=== PATIENT | female | born 1940 | race Caucasian/White ===

== ENCOUNTER 2016-10-01 05:24 | Day surgery (SDC) | payer MEDICARE, OTHER ==
[2016-10-01] VITALS (8 sets, daily range): BP systolic 148–182; BP diastolic 76–87; Ht 165.1 cm; Wt 88.3 kg
[~2016-10-01] VITALS: Ht 165.1 cm; Wt 88.3 kg
[~2016-10-01 05:24] MED LIST: ACETAMINOPHEN500 M1 PO; CARDIZEM CD180 MG PO; CLEOCIN HCL300 MG PO; COUMADIN10 MG PO; COUMADIN5 MG PO; COUMADIN7.5 MG PO; LISINOPRIL5 MG GT; SYNTHROID50 MCG PO; VITAMIN D2000 UNIT; ZANTAC150 MG PO
[2016-10-01] MEDS ORDERED: LISINOPRIL5 MG PO (06:18)
[2016-10-01] MEDS ORDERED: LOVENOX60 MG/0.6 SC (06:19)
[2016-10-01] MEDS ORDERED: OMEPRAZOLE20 M1 PO (06:21)
[2016-10-01 06:37] LABS: HEMOGLOBIN 11.3 g/dL (12-16); MCH 30.1 pg (26.0-34.0); MCHC 32.3 g/dL (31.0-37.0); MCV 93.1 fL (80.0-100.0); MEAN PLATELET VOLUME 11.2 fL (7.4-10.4); RBC 3.76 10x6/uL (4.00-5.40); RDW 16.1 % (11.5-14.5); WBC 6.1 10x3/uL (4.8-10.8)
[2016-10-01 06:47] LABS: ANION GAP 16.2 mmol/L (8-16); CALCIUM 9.5 mg/dL (8.5-10.1); CARBON DIOXIDE 21.8 mmol/L (21.0-32.0); CREATININE - SERUM 1.6 mg/dL (0.6-1.3)
[2016-10-01] MEDS ORDERED: CITRACAL + D E1 EACH PO (06:49)
[2016-10-01] MEDS ORDERED: ZYRTEC10 MG PO (06:50)
[2016-10-01 06:54] LABS: INR 1.06 (0.85-1.17); PROTIME 13.7 SECONDS (11.6-15.0)
[2016-10-01 06:55] LABS: APTT 24.5 SECONDS (22.8-39.4)
--- NOTE | 2016-10-01 19:00 | NUR ---
RECEIVED REPORT AND ASSUMED PT CARE FROM DAY SHIFT NURSE @ THIS TIME.
--- NOTE | 2016-10-01 19:30 | NUR ---
RIGHT AC IV APPEARS INFILTRATED. REDNESS AND SWELLING NOTED. UNABLE TO FLUSH. CATH REMOVED, TIP INTACT. RESITED TO RIGHT UPPER ARM WITH 22 GA ANGIOCATH X1 STICK. PT SHANNON WELL. WILL MONITOR.
[2016-10-02 00:42] VITALS: BP 170/76
[2016-10-02 04:00] VITALS: BP 116/66
[2016-10-02 07:18] VITALS: BP 116/66
--- NOTE | 2016-10-02 07:30 | NUR ---
PT SITTING UP IN BED SLEEPING NO S/S DISTRESS. WILL CONTINUE TO MONITOR.
--- NOTE | 2016-10-02 08:00 | NUR ---
MINNA DOBBS IN [facility]. CALLED PHARM AND ASKED THEM TO BRING UP.
[2016-10-02 08:03] VITALS: BP 128/55
--- NOTE | 2016-10-02 10:02 | NUR ---
STILL NO BENTEC IN [facility]. TALKED TO [facility] THIS TIME. SAID THEY WILL SEND SOME UP
--- NOTE | 2016-10-02 11:32 | HP ---
PATIENT: MARIEL ROBBINS MEDICAL RECORD: [id number] ACCOUNT: [id number] LOCATION:[place] [address] : 40 ADMISSION DATE: 10/01/16 HISTORY AND PHYSICAL EXAMINATION Patient NameMARIEL ROBBINS (76yo, F) ID# [id number]. Date/Time09/15/2016 10:37DUENY73/07/194[facility] Dept.NPP_[facility] ClinicProviderKIM GREEN MDInsuranceMed Primary: MEDICARE B-AR: [employer] MEDICARE Insurance # : [id number] Referring Provider Name : PASCUAL NEWELL Employer Name : [place] Med Secondary: [employer] (MEDICARE SUPPLEMENT) Insurance # : [id number] Policy/Group # : PLAN F Referring Provider Name : PASCUAL NEWELL Employer Name : NA Prescription: Chief Complaint pulse generator end-of-life, Atrial lead revision Patient's Care Team Referring Provider (): PASCUAL NEWELL: [address] [address], , [employer] Executive Director: GREAT COOPER MD Patient's Pharmacies [facility] ([place]): [address] [place] [id number], , Vitals BP:158/88 sitting R arm 09/15/2016 10:15 amBP Cuff Size:adult 09/15/2016 10:15 amHR:88,sl irreg 09/15/2016 10:16 amHt:5 ft 6 in 09/15/2016 10:16 amWt:190 lbs 09/15/2016 10:17 amBMI:30.7 09/15/2016 10:17 amAllergies Reviewed Allergies CODEINE: RashPENICILLINS: RashSULFA (SULFONAMIDE ANTIBIOTICS): RashMedications Reviewed Medications azithromycin 500 mg tablet Take 1 tablet(s) every day by oral route for 5 days., start filledKathy WilsonCalcium 7338412/10/14 enteredCharity McAllisterdilTIAZem CD 180 mg capsule,extended release 24 hr12/23/14 [facility]14[facility]isin[facility] 5 mg /30/15 [facility] CenterVitamin D212/10/14 enteredCharity McAllistervitamin E012/10/14 enteredCharity McAllisterwarfarin 5 mg tablet tuesday and ltxnrcre45/07/14 [facility] Fidelithon Systemswarfarin 7.5 mg tablet takes daily tuesday thru vhiave42/07/14 [facility] Fidelithon SystemsVaccines Reviewed Vaccines FLU 07/2014 PNUMONIA 07/2014 Problems Reviewed Problems Pulmonary embolism Sinus node dysfunction Deep venous thrombosis Pneumonia Scar conditions and fibrosis of skin Dyspnea HISTORY AND PHYSICAL [id number] MARIEL ROBBINS Pleuritic pain Family History Reviewed Family History Non-contributory.Social History Reviewed Social History Meaningful Use - Optional Smoking Status: Never smoker Deaf or serious difficulty hearing: Y Blind or serious difficulty seeing: N Difficulty concentrating, remembering or making decisions: N Difficulty walking or climbing stairs: N Difficulty dressing or bathing: N Difficulty doing errands alone: N Surgical History Reviewed Surgical History Blood clot retraction Anesth knee joint surgery Anesth hysterectomy Removal of gallbladder Relocation pocket pacemaker - 11/11/2010 Reposition pacing-defib lead - 11/11/2010 FINANCE MANAGER History (not configured) Obstetric History Reviewed Obstetric History Past Medical History Past Medical History not reviewed (last reviewed 12/24/2014) Blood Clots: Y Heart Disease: Y - PACEMAKER WITH IRREGULAR BEATS High Blood Pressure: Y Kidney Disease: Y Shortness of Breath: Y Swelling of Ankles, Feet or Hands: Y Thyroid Problems: Y Documents for Discussion N/A Screening None recorded. HPI Pacemaker Check Reported by patient. Pacemaker Check arrhythmias are controlled on current medications Notes: needs gen change. needs atrial lead. ROS Patient reports chest pressure and dyspnea on exertion. ROS as noted in the HPI Physical Exam Patient is a 76-year-old female. Constitutional: General Appearance well nourished and developed and healthy-appearing. Level of Distress NAD. Ambulation ambulating normally. HISTORY AND PHYSICAL [id number] MARIEL ROBBINS Cardiovascular: Apical Impulse not displaced or no thrill. Heart Auscultation normal s1 and s2; no murmurs, rubs, or gallops; and RRR. Arterial Pulses no abdominal aorta bruits, femoral bruits, or popliteal bruits and 2+ bilateral, carotid 2+ bilateral, femoral 2+ bilateral, popliteal 2+ bilateral, and dorsalis p bhupendra 2+ bilateral. Edema no edema or varicosities. Lungs: Repiratory Effort no dyspnea. Percussion no hyperresonance or dullness or flatness. Auscultation no wheezing, rhonchi, or rales / crackles and breathing sounds normal, good air movement, and CTA except as noted. Abdomen: Bowl Sounds normal. Inspection and Palpation no tenderness, guarding, masses, or rebound tenderness and soft and non-distended. Liver non-tender and no hepatomegaly. Spleen non-tender and no splenomegaly. Hernia none palpable. Musculoskeletal System: Gait And Stance normal gait and stance. Digits and Nails normal nails and no cyanosis. Neurologic: Cranial Nerves grossly intact. Reflexes DTRs 2+ bilaterally throughout. Sensation grossly intact. Lymph Nodes: Lymph Nodes no cervical LAD, supraclavicular LAD, axillary LAD, or inguinal LAD. Eyes: Lids and Conjunctivae no discharge or pallor and non-injected. Pupils PERRLA. Cornea grossly intact. EOM EOMI. Lens clear. Sclera non-icteric. Neck: Neck no masses, enlarged lymph nodes, or carotid bruits and supple and trachea midline. Thyroid no enlargement or nodules and non-tender. Skin: Inspection and Palpation no rash, lesions, ulcers, jaundice, or abnormal nevi. Assessment / Plan 1. Sick sinus syndrome I49.5: Sick sinus syndrome Discussion Notes atrial lead threshold was high pulse generator battery end-of-life We'll schedule for new atrial lead and pacemaker generator exchange Will need to complete her Z-Hitesh then she will need to be off Coumadin for 5 days with a Lovenox bridge for 2 days Return to Office None recorded. Encounter Sign-Off Encounter signed-off by Jaiden Green MD, 09/15/2016. HISTORY AND PHYSICAL [id number] MARIEL ROBBINS EDWARD MD at 1132 CC: [id number] DICTATION DATE: 09/15/16 1200 CRUSHER FOREMAN: MARTHA 09/29/16 0946 [address] [facility] [address] [place] [address]
--- NOTE | 2016-10-02 11:32 | OP ---
PATIENT NAME: MARIEL ROBBINS MEDICAL RECORD: [id number] :40 LOCATION:D. D.2120 ADMISSION DATE: SURGEON: ANIBAL VENTURA MD DATE OF OPERATION: 10/01/2016 SURGEON: Anibal Ventura MD ANESTHESIA: General, Dr. Garrett. OPERATION PERFORMED: 1. Atrial lead placement. 2. Generator exchange. 3. Pocket revision. PREOPERATIVE DIAGNOSIS: Sick sinus syndrome, disfunctional atrial lead. POSTOPERATIVE DIAGNOSIS: Sick sinus syndrome, disfunctional atrial lead. INDICATION FOR OPERATION: Dysfunctional atrial lead, pulse generator end of life. FINDINGS OF THE OPERATION: The removed device is a Medtronic Adapta ADDR01, serial number [id number]. ____ Atrial lead Medtronic model number 5076-45, serial number [id number]. Newly implanted generator Medtronic Adapta ADDR01, serial number [id number]. Newly implanted atrial lead Medtronic model number 4574-45, serial number [id number]. Right ventricular lead Medtronic model number 5076-52, serial number [id number]. ESTIMATED BLOOD LOSS: Less than 5 cc. DESCRIPTION OF PROCEDURE: After informed consent, adequate preoperative medication evaluation, the patient was brought to the operating room, placed on the table in the supine position. After induction of general anesthesia and application of appropriate monitoring devices, the left chest was prepped and draped in a sterile field, utilizing Betadine scrub, alcohol, and Betadine solution. A Betadine-impregnated drape was also used. A 1% lidocaine was infiltrated in the infra and subclavicular space as well as the pulse generator pocket. An incision was made and carried down to the generator. The generator was explanted. The leads were mobilized with sharp dissection, the pocket was then opened inferiorly and medially to modify the pocket. The revision was carried out with sharp dissection and electrocautery. Attempts were then made to access the subclavian vein; however, we were unable to access it with the needle. The pectoralis muscle was then opened along its fibers. Dissection was carried down to the subclavian vein. A 6-0 Prolene suture was placed around the area to be accessed. The needle was placed in the vein and we were unable to pass the J-wire into the atrium. A Glidewire was then used and manipulated into the atrium. A short introducer was then placed. Attempts were made to place the lead into the atrium. However, there were areas of stenosis in the subclavian vein. Exchange was made for a long introducer and the leads placed in the atrial appendage. It was tested and found to be in good position with OPERATIVE REPORT [id number] MARIEL ROBBINS good thresholds. The lead was secured. The old atrial lead was capped and placed in the depths of the wound. The pulse generator was then connected to the leads. Pocket was irrigated. Instrument count and sponge count were correct times 2. Pocket was placed. The pacemaker was placed in the pocket. The pocket closed in layers utilizing 2-0 Vicryl on deep subcutaneous tissue, 3-0 Vicryl on superficial subcutaneous tissues. Skin approximated with 5-0 subcuticular Monocryl. Sterile dressing was applied. STIMULATION THRESHOLDS: Atrial lead threshold 0.3 volts, current threshold 0.2 milliamps, resistance 738 ohms. P-wave 5.2. VENTRICULAR LEAD: Chronic threshold 0.5 volts, current lead threshold 1.1 milliamps, resistance 423 ohms, R-wave 6.0. The patient tolerated the procedure well and was transferred to postanesthesia recovery in satisfactory condition. TRANSINT:[id number] Voice Confirmation ID: [id number] DOCUMENT ID: [id number] ANIBAL VENTURA MD at 1132 CC: [id number] DICTATION DATE: 10/01/16 0948 STUD MASTER/MISTRESS: 10/01/16 1146 [address] [place] [address] [place] [address]
--- NOTE | 2016-10-02 11:58 | NUR ---
WENT OVER DC INSTRUCTIONS WITH PT PT VERBALIZES UNDERSTANDING. DC PIV IN R FA WITH CATHETER TIP INTACT. DC TELE. BOAT REPAIRER TO GET WHEELCHAIR AND WHEEL PT OUT.
[2016-10-02 12:11] VITALS: BP 102/51
--- NOTE | 2016-10-08 11:11 | DS ---
PATIENT:MARIEL YOUNG :40 MEDICAL RECORD: [id number] DISCHARGE SUMMARY ADMISSION DATE: 10/01/16 DISCHARGE DATE: 10/02/16 DISCHARGE DIAGNOSES: 1. Paroxysmal atrial fibrillation. 2. Hypertension. 3. Sick sinus syndrome. 4. Status post pacemaker. HOSPITAL COURSE: Mrs. Young had a generator exchange due to end of life and lead revision of the atrial lead. She had paroxysms of atrial fibrillation during the procedure, but none afterwards with the Cardizem. Blood pressure was controlled with Cardizem, lisinopril. Her warfarin was restarted, discharged home in stable condition to follow up with [facility] 1 month. TRANSINT:[id number] Voice Confirmation ID: [id number] DOCUMENT ID: [id number] GRETA COOPER MD at 1111 CC: [id number] DICTATION DATE: 10/02/16 1031 STONE RIGGER: 10/02/16 1046 [facility] 10/02/[address] [address]
--- NOTE | 2016-10-08 11:11 | CN ---
PATIENT NAME:MARIEL YOUNG MEDICAL RECORD: [id number] : 40 LOCATION:D.OPS ADMIT DATE: ACCOUNT: [id number] CONSULTING PHYSICIAN: GRETA COOPER MD REFERRING PHYSICIAN: ANIBAL GREEN MD DATE OF CONSULTATION: 10/01/2016 Cardiology Consultation ADMITTING DIAGNOSES: 1. Paroxysmal atrial fibrillation. 2. Sick sinus syndrome. 3. Status post pacemaker. 4. Atrial lead revision. 5. Hypertension. HISTORY OF PRESENT ILLNESS: Mrs. Young has had a past history of paroxysmal atrial fibrillation, atrial arrhythmias and sick sinus syndrome. She is now brought in for generator change well as atrial lead revision. She had significant atrial arrhythmias at the time of the procedure. She now is in sinus rhythm. She is on diltiazem every day. She has not been able to tolerate beta-blockers in the past. Dose of diltiazem is 180 mg every day. PHYSICAL EXAMINATION: GENERAL APPEARANCE: Well-nourished, well-developed, appears stated age. Level of distress, comfortable. PSYCHIATRIC: Mental status, alert, normal affect. Orientation, oriented to time, place and person. EYES: Lids and conjunctiva, noninjected. No discharge, no pallor. ENT: Lips, teeth, gums, normal dentition. Oropharynx, no cyanosis, no pallor. NECK: Carotid arteries, bilateral normal upstroke, no bruits, no thrills. JUGULAR VEINS: No jugular venous pressure or distention. CERVICAL LYMPH NODES: Nontender, nonenlarged. THYROID: Not enlarged. Nontender. No nodules. LUNGS: Respiratory effort, unlabored. CHEST: Normal curvature. No thoracic deformity. No chest wall tenderness. Percussion, resonant. Auscultation, clear. No wheezes, no rales, no rhonchi. CARDIOVASCULAR: Precordial exam, nondisplaced. No heaves or pericardial thrills. Rate and rhythm, regular. Heart sounds, normal S1, normal S2. No S3, no gallop, no rub. Systolic murmur, not heard. Diastolic murmur, not heard. EXTREMITIES: No cyanosis, no edema. Peripheral pulses, full and equal in all extremities, except as noted. No bruits appreciated. ABDOMEN: Soft, nondistended. Normal aorta. No bruit. Nontender. No masses. Liver, nontender, no hepatomegaly. Spleen, nontender, no splenomegaly. MUSCULOSKELETAL: No joint tenderness. No joint swelling. No erythema. NEUROLOGICAL: Normal gait, normal strength, normal tone. SKIN: Warm and dry. REVIEW OF SYSTEMS: The patient reports easy bruising but reports no swollen glands. The patient reports no fever, no night sweats, no significant weight gain, no significant weight loss. No significant exercise tolerance. The patient reports no dry eyes, no irritation, no vision change. Patient reports no difficulty hearing and no ear pain. Patient reports no frequent nose bleeds or nose and sinus problems. Patient reports on arm pain on exertion. No shortness of breath while lying down. No history of heart murmur. Patient CONSULT REPORT [id number] MARIEL YOUNG S reports no cough, no wheezing or coughing up blood. Patient reports no abdominal pain, no vomiting. Normal appetite. No diarrhea and not vomiting blood. No nausea and no constipation. Patient reports no incontinence. No difficulty urinating. No hematuria. No increased frequency. Patient reports no muscle aches. No weakness, no arthralgias, no back pain. No swelling of the extremities. Patient reports no abnormal mole, no jaundice, no rashes. Reports no loss of consciousness. No weakness and no numbness. No seizures, dizziness, or headaches. The patient reports no depression, no sleep disturbance, feeling safe in a relationship and no alcohol abuse. Patient reports on fatigue. Reports no runny nose or sinus pressure. No itching, no hives, and no frequent sneezing. OVERALL IMPRESSION: Atrial arrhythmias during the procedure, most likely secondary to manipulation of the atrium. Right now, she is sinus rhythm at 78 with the diltiazem, has not had any arrhythmias since she has been here. We will continue only with the diltiazem. Due to her intolerance to beta blockers, we will change her to possibly sotalol or Cordarone if she continues to have further atrial arrhythmias today. TRANSINT:[id number] Voice Confirmation ID: [id number] DOCUMENT ID: [id number] GRETA COOPER MD at 1111 CC: [id number] DICTATION DATE: 10/01/16 1054 REAL ESTATE CLOSING COORDINATOR: 10/01/16 1317 [facility] 10/02/16 [place] [address]
== END 2016-10-02 13:08 | disposition home or self-care (01) ==
LOC: D.M2 05:24 → D.OPS 05:24 → D.M2 09:51 → D.SDCHOLD 11:15 → D.OPS 10-02 13:08
PROVIDERS: Internal Medicine Cardiovascular Disease
DX: Z45.010 Encounter for checking and testing of cardiac pacemaker pulse generator [battery] (principal); T82.190A Other mechanical complication of cardiac electrode, initial encounter; I49.5 Sick sinus syndrome; I48.0 Paroxysmal atrial fibrillation; I10 Essential (primary) hypertension

== ENCOUNTER 2017-03-30 20:07 | Observation (INO) | payer MEDICARE, OTHER ==
[~2017-03-30] VITALS: Ht 165.1 cm; Wt 91.1 kg
--- NOTE | ~2017-03-30 | HEMODYNAMI ---
PATIENT:MARIEL ROBBINS MEDICAL RECORD: [id number] : 40 LOCATION[id number] ADMISSION DATE: 03/30/17 Generatedon:04/01/201710:30 Patient name: MARIEL ROBBINS Patient #: [id number] SSN: : 1940 Date of study: 04/01/2017 Page: Of Hemodynamic Procedure Report Patient Data Patient Demographics Procedure consent was obtained First Name: MARIEL Gender: Female Last Name: ITZEL : 1940 Middle Initial: S Age: 76 year(s) Patient #: [id number] Race: Unknown Additional ID: [id number] Contact details [address]: [address] [place] [address] State: [place] City: [place] Zip code: [address] Past Medical History Allergies Allergen Reaction Date Comments Reported Penicillins 04/01/2017 Sulfa drugs 04/01/2017 Codeine 04/01/2017 Other allergy 04/01/2017 METOPROLOL Admission Admission Data Admission Date: 03/30/2017 Admission Time: 23:04 Room #: D.2119 Height (in.): 66 BSA: 2.03 (m2) Height (cm.): 167.64 BMI: 33.25 (kg/m2) Weight (lbs.): 206 Weight (kg.): 93.44 Lab Results Lab Result Date: 04/01/2017 Lab Result Time: 0:01 Biochemistry Name Units Result Min Max CK-MB ng/ml 2.5 --(--*-)-- 0 3.6 Creatinine l 189 --(---*)-- 21 215 Kinase Troponin l ng/ml 0.017 --(-*--)-- 0 0.06 Procedure Procedure Types Cath Procedure Diagnostic Procedure [facility] w/Coronaries Miscellaneous Procedures Moderate Sedation up to 15 minutes Procedure Description Procedure Date Procedure Date: 04/01/2017 Procedure Start Time: 10:17 Procedure End Time: 10:28 Procedure Staff Name Function Manpreet Juarez MD Performing Physician Leah Brink RN Nurse Kris Solano RT Scrub [place]antara RT Monitor Procedure Data Cath Procedure Fluoroscopy Diagnostic fluoroscopy Total fluoroscopy Time: 1.6 time: 1.6 min min Diagnostic fluoroscopy Total fluoroscopy dose: 300 dose: 300 mGy mGy Contrast Material Contrast Material Type Amount (ml) Isovue 300 47 Entry Location Entry Primary Successful Side Size Upsize Upsize Entry Closure Succes sful Closure Location (Fr) 1 (Fr) 2 (Fr) Remarks Device Remarks Femoral Right 5 Fr Exoseal artery Diagnostic catheters Device Type Used For End Catheter Placement Cordis 5Fr Pigtail LV Angiography Catheter (MP) Cordis 5Fr JL 4.0 Left Coronary Catheter (MP) Angiography Cordis 5Fr 3DRC Catheter Right Coronary (MP) Angiography Procedure Complications No complications Procedure Medications Medication Administration Route Dosage Oxygen NC 2 l/min Heparin Flush Bag added to field 2 bags (1000units/500ml NS) Lidocaine 2% added to field 20 Versed I.V. 1 mg Fentanyl I.V. 50 mcg Versed I.V. 1 mg Fentanyl I.V. 50 mcg Fentanyl I.V. 50 mcg Hemodynamics Rest BSA: 2.03 (m2) HGB: 10.4 (g/dl) O2 Consumption: Estimated: 194.37 (ml/min) O2 Co nsumption indexed: Estimated:95.75 (ml/min/m) Heart Rate: 83 (bpm) Snapshots Pre Cath Intra NCS Post Cath Vital Signs Time Heart Resp SPO2 etCO2 EN7tcul NIBP (mmHg) Rhythm Pain Sedation Rate (ipm) (%) (mmHg) (mmHg) Status Level (bpm) 10:01:19 83 19 95 0 0 171/85(150) NSR 0 (11) 10(A) , No pain 10:05:47 79 19 94 0 0 182/82(134) NSR 0 (11) 10(A) , No pain 10:10:09 73 15 97 0 0 172/81(119) NSR 0 (11) 10(A) , No pain 10:14:35 69 16 97 0 0 145/71(101) NSR 0 (11) 10(A) , No pain 10:18:55 71 16 97 0 0 152/74(101) NSR 0 (11) 9(A) , No pain 10:23:20 73 18 96 0 0 157/69(122) NSR 0 (11) 9(A) , No pain 10:27:34 72 8 94 0 0 147/73(101) NSR 0 (11) 9(A) , No pain Medications Time Medication Route Dose Verified Delivered Reason Notes Effec tiveness by by 10:08:27 Oxygen NC 2 Manpreet Leah Per l/min Ann Brink RN physician 10:08:36 Heparin Flush added 2 Manpreet Manpreet used for Bag to bags Ann Juarez MD procedure (1000units/500ml field NS) 10:08:44 Lidocaine 2% added 20ml Manpreet Manpreet used for to vial Ann Juarez MD procedure field 10:10:15 Versed I.V. 1 mg Manpreet Leah for Ann Brink RN sedation 10:10:21 Fentanyl I.V. 50 Manpreet Leah for mcg Ann Brink RN sedation 10:12:56 Versed I.V. 1 mg Manpreet Leah for Ann Brink RN sedation 10:13:02 Fentanyl I.V. 50 Manpreet Leah for mcg Ann Brink RN sedation 10:14:57 Fentanyl I.V. 50 Manpreet Leah for mcg Ann Brink RN sedation Procedure Log Time Note 9:30:47 [place] RT(R) sent for patient. Start room use. 9:40:48 Time tracking: Regular hours 9:40:52 Plan of Care:Hemodynamics will remain stable., Cardiac rhythm will remain stable., Comfort level will be maintained., Respiratory function will remain adequate., Patient/ family verbilizes understanding of procedure., Procedure tolerated without complication., Recovers from procedure without complications.. 9:42:52 H&P Date Dictated: 03/31/2017 Within 30 days and on chart.. 9:43:02 Is patient on blood thinner?No 9:43:34 Lab results completed and on chart. 9:44:15 Lab Result : BUN 20 mg/dl 9:44:15 Lab Result : Creatinine 1.7 mg/dl 9:44:15 Lab Result : Troponin l 0.017 ng/ml 9:44:15 Lab Result : Hemoglobin 10.4 g/dl 9:44:15 Lab Result : PT 15.1 sec 9:44:15 Lab Result : INR 1.2 units 9:52:47 Patient received from PCU to CCL 1 Alert and oriented. Tansferred to table in Supine position. 9:52:49 Warm blankets applied, and virginia hugger turned on for patient comfort. 9:52:49 Correct patient and procedure confirmed by team. 9:52:50 Signed procedure consent form obtained from patient. 9:52:51 ECG and BP/O2 sat monitors applied to patient. 10:00:02 Vital chart was started 10:03:30 Patient Height : 66 cm 10:03:32 Patient Weight : 206 kg 10:03:35 Baseline sample Acquired. 10:03:37 Rhythm: sinus rhythm 10:03:38 Full Disclosure recording started 10:03:39 Pre-procedure instructions explained to patient. 10:03:40 Pre-op teaching completed and patient verbalized understanding. 10:03:42 Family in patients room. 10:03:47 Patient NPO since Midnight. 10:03:56 Patient allergic to Penicillins 10:04:01 Patient allergic to Sulfa drugs 10:04:09 Patient allergic to Codeine 10:04:33 Patient allergic to Other allergyMETOPROLOL 10:04:36 Is the patient allergic to Iodine/contrast media? No. 10:04:45 Patient diabetic? No. 10:04:46 ----Pre-sedation anethsthesia assessment.---- 10:04:48 Previous problem with sedation/anesthesia? No ? 10:04:50 Snore? Yes 10:04:52 Sleep apnea? No 10:04:53 Deviated septum? No 10:04:55 Opens mouth fully? Yes 10:04:57 Sticks out tongue? Yes 10:04:59 Airway obstruction? No ] 10:05:01 Dentures? No ? 10:05:07 Pre procedure: right dorsailis pedis pulse 1+ Palpable, but thready & weak; easily obliterated 10:05:22 Patient pain scale 0/10 CREDIT RISK ASSOCIATE CP AT THIS TIME. 10:05:29 IV patent on arrival in right wrist with 0.9% NaCl at 10ml/hr. 10:05:33 Right groin area was prepped with chlora-prep and draped in sterile fashion 10:05:34 Alarms reviewed by R. N. 10:05:35 Sharps counted by scrub and verified by R.N. 10:08:27 Oxygen 2 l/min NC was administered by Leah Brink RN; Per physician; 10:08:36 Heparin Flush Bag (1000units/500ml NS) 2 bags added to field was administered by Manpreet Juarez MD; used for procedure; 10:08:44 Lidocaine 2% 20ml vial added to field was administered by Manpreet Juarez MD; used for procedure; 10::08 Lab Result : CK-MB 2.5 ng/ml 10::08 Lab Result : Creatinine Kinase 189 l 10:: Lab Result : Troponin l 0.017 ng/ml 10:09:35 Use device set Femoral Dx 10:09:36 Acist Syringe opened to sterile field. 10:09:36 Bag Decanter opened to sterile field. 10:09:37 Medline Cath Pack opened to sterile field. 10:09:37 Terumo 5Fr [place] Sheath opened to sterile field. 10:09:38 St Evgeny 260cm J .035 wire opened to sterile field. 10:09:38 Acist Hand Control opened to sterile field. 10:09:39 Acist Manifold opened to sterile field. 10:09:39 Diagnostic Infinity 5Fr Multipack catheter opened to sterile field. 10:09:40 Tegaderm 4 x 4 opened to sterile field. 10::44 --------ALL STOP TIME OUT------ 10:09:45 Final Timeout: patient, procedure, and site verified with staff and physician. All members of the team are in agreement. 10:09:46 Right groin site verified by team. 10:09:49 Physical assessment completed. ASA score P 2 - A patient with mild systemic disease as per Manpreet Juarez MD. 10:09:52 Sedation plan: IV Moderate Sedation Versed, Fentanyl 10:10:15 Versed 1 mg I.V. was administered by Leah Brink RN; for sedation; 10:10:21 Fentanyl 50 mcg I.V. was administered by Leah Brink RN; for sedation; 10:12:56 Versed 1 mg I.V. was administered by Leah Brink RN; for sedation; 10:13:02 Fentanyl 50 mcg I.V. was administered by Leah Brink RN; for sedation; 10:14:57 Fentanyl 50 mcg I.V. was administered by Leah Brink RN; for sedation; 10:17:26 Procedure started. 10:17:32 Local anesthetic to right femoral artery with Lidocaine 2% by Manpreet Juarez MD.INITIAL ACCESS ONLY 10:17:42 A 5 Fr sheath was inserted into the Right Femoral artery 10:17:53 A Cordis 5Fr Pigtail Catheter (MP) was advanced over the wire and used for LV Angiography. 10:17:57 LV angiography performed. 10:18:00 LV gram done using SAHU 10:18:09 Injector settings: Ml/sec: 10, Volume: 20, 10:19:26 EF : 50 % 10:19:27 Catheter removed. 10:19:32 A Cordis 5Fr JL 4.0 Catheter (MP) was advanced over the wire and used for Left Coronary Angiography. 10:19:41 Zero performed for pressure channel P1 10:20:24 LCA angiography performed. 10:20:57 Catheter removed. 10:21:15 A Cordis 5Fr 3DRC Catheter (MP) was advanced over the wire and used for Right Coronary Angiography. 10:21:21 RCA angiography performed. 10:21:35 Catheter removed. 10:21:41 Contrast amount:Isovue 300 47ml. 10:21:47 Sheath removed intact; hemostasis achieved with Exoseal to the Right Femoral artery. 10:21:49 Procedure ended.(Physican Out) 10:22:13 Fluoroscopy time 01.60 minutes. 10:22:18 Fluoroscopy dose: 300 mGy 10:22:18 Flurop Dose total: 300 10:22:20 Sharps counted by scrub and verified by R.N. 10:22:46 Insertion/operative site no bleeding no hematoma. 10:22:49 Post-op/insertion site Right Femoral artery dressed using a 4 x 4 and Tegaderm. 10:22:52 Post right femoral artery:stable 10:27:55 Post procedure: right dorsailis pedis pulse 1+ Palpable, but thready & weak; easily obliterated. 10:27:58 Post procedure rhythm: sinus rhythm 10:27:59 Post procedure instruction explained to patient.Patient verbalizes understanding. 10:28:01 Procedure and supply charges have been captured, reviewed, submitted and are correct. 10:28:17 Cordis 5Fr Exoseal opened to sterile field. 10:28:30 Procedure Complication : No complications 10:28:32 Vital chart was stopped 10:28:32 See physician's report for complete and final results. 10:28:34 Report given to PCU. 10:28:37 Patient transfered to PCU with Bed. 10:28:39 Procedure ended. 10:28:39 Full Disclosure recording stopped 10:28:42 End room use (Document Last) Device Usage Item Name Manufacture Quantity Catalog Hospital Part Current Minimal Lo t# / Number Charge Number Stock Stock Serial# Code Acist Acist 1 [id number] 206071 925358 20 Syringe [employer] Inc Bag Microtek 1 2002S 718206 83912 610292 5 Decanter [employer] Inc. Medline Cardinal 1 [id number] 261494 01004 537432 5 Cath Pack Health Terumo 5Fr Terumo 1 [id number] 874521 642919 798504 [address] Evgeny 1 149366 572286 654713 816677 30 260cm J .035 wire Acist Hand Acist 1 50169 560170 893489 147345 5 Control Medical Systems Inc Acist Acist 1 68785 794466 669209 190339 5 Manifold Medical Systems Inc Diagnostic Cardinal 1 [id number] 772348 86762 867621 30 Infinity Health 5Fr Multipack catheter Tegaderm 4 3M 1 1626W 057738 109892 808317 5 x 4 Cordis 5Fr Cardinal 1 974007 5 Pigtail Health Catheter (MP) Cordis 5Fr Cardinal 1 [id number] 5 JL 4.0 Health Catheter (MP) Cordis 5Fr Cardinal 1 449344 5 3DRC Health Catheter (MP) Cordis 5Fr Cardinal 1 EX500 303210 242773 884907 10 Exoseal Health Signature Audit [place] Stage Time Signature Unsigned Intra-Procedure 04/01/2017 [place] 10:30:19 AM RT(R) Signatures Monitor : [place] RT Signature : Date : Time : [facility] [address] [place] [address]
[~2017-03-30 20:07] MED LIST changes: +CITRACAL + D E1 EACH PO; +LISINOPRIL5 MG PO; +LOVENOX60 MG/0.6 SC; +OMEPRAZOLE20 M1 PO; +ZYRTEC10 MG PO
[2017-03-30 21:12] LABS: BASOPHILS 0.3 % (0-2); HEMATOCRIT 34.2 % (36.0-48.0); IMMATURE GRANULOCYTES 0.6 % (0-5); LYMPHOCYTES 30.3 % (15-50); MCH 28.8 pg (26.0-34.0); MCHC 32.2 g/dL (31.0-37.0); MCV 89.5 fL (80.0-100.0); MONOCYTES 10.5 % (2-11); NEUTROPHILS 55.3 % (40-80); PLATELET COUNT 204 10x3/uL (130-400); RBC 3.82 10x6/uL (4.00-5.40); RDW 15.6 % (11.5-14.5)
[2017-03-30 21:16] LABS: APTT 26.8 SECONDS (22.8-39.4); INR 1.59 (0.85-1.17); PROTIME 18.9 SECONDS (11.6-15.0)
[2017-03-30 21:28] LABS: ALBUMIN 3.5 g/dL (3.4-5.0); ALT (SGPT) 24 U/L (10-68); CALC OSMOLALITY 284 mosm/kg (275-300); CALCIUM 10.3 mg/dL (8.5-10.1); CARBON DIOXIDE 23.9 mmol/L (21.0-32.0); CHLORIDE - SERUM 105 mmol/L (98-107); GLUCOSE 93 mg/dL (74-106); POTASSIUM - SERUM 4.3 mmol/L (3.5-5.1); SODIUM 140 mmol/L (136-145); UREA NITROGEN 29 mg/dL (7-18); eGFR NON AFRICAN AMERICAN 26 mL/min (90-120)
[2017-03-30 22:07] LABS: ALKALINE PHOSPHATASE 106 U/L (46-116); CHOLESTEROL, TOTAL 192 mg/dL (0-200); CKMB 2.5 U/L (0.0-3.6); CREATINE KINASE 189 UL (21-215); HDL CHOLESTEROL 32 mg/dL (32-96); LDL CHOLESTEROL 104 mg/dL (0-100); LDL-HDL RATIO 3.3 ratio (1.5-3.5); PRO BNP 192 pg/mL (0-450); TRIGLYCERIDE 281 mg/dL (30-200); TROPONIN-I < 0.017 ng/mL (0.000-0.060)
--- NOTE | 2017-03-30 23:52 | NUR ---
REPORT RECEIVED FROM FELIPE MAGDALENO.
[2017-03-31] MEDS ORDERED: ZANTAC150 MG PO (01:20)
[2017-03-31 01:31] VITALS: BMI 33.3
--- NOTE | 2017-03-31 03:12 | NUR ---
GARMENT FINISHER AT BEDSIDE TO OBTAIN VITALS, CALL LIGHT IN REACH. WILL CONTINUE TO MONITOR.
--- NOTE | 2017-03-31 06:39 | NUR ---
NO CHANGES FROM PREVIOUS ASSESSMET, CALL LIGHT IN REACH. WILL CONTINUE TO MONITOR.
[2017-03-31 08:34] LABS: BASOPHILS 0.3 % (0-2); HEMATOCRIT 35.5 % (36.0-48.0); HEMOGLOBIN 11.3 g/dL (12-16); IMMATURE GRANULOCYTES 0.3 % (0-5); LYMPHOCYTES 23.5 % (15-50); MCHC 31.8 g/dL (31.0-37.0); MEAN PLATELET VOLUME 11.5 fL (7.4-10.4); MONOCYTES 9.7 % (2-11); NEUTROPHILS 63.2 % (40-80); PLATELET COUNT 217 10x3/uL (130-400)
[2017-03-31 08:38] LABS: ANION GAP 17.3 mmol/L (8-16); CALCIUM 9.9 mg/dL (8.5-10.1); CARBON DIOXIDE 22.6 mmol/L (21.0-32.0); CREATININE - SERUM 1.9 mg/dL (0.6-1.3); POTASSIUM - SERUM 3.9 mmol/L (3.5-5.1)
--- NOTE | 2017-03-31 12:43 | NUR ---
Patient Name: MARIEL ROBBINS Admission Status: ER Accout number: [id number] Admission Date: 03-30-2017 : 1940 Admission Diagnosis: Attending: VASU Current LOS: 1 Anticipated DC Date: Planned Disposition: HOME Primary Insurance: MEDICARE A & B Discharge Planning Comments: CM PROVIDED AND DISCUSSED MEDICARE [facility] OBSERVATION NOTICE. PT HAD NO QUESTIONS. COPY TO PT, COPY TO CHART. CM TO FOLLOW AND ASSIST IF NEEDED. Scrap Preparer: Shiraz Patterson
[2017-03-31 13:09] VITALS: BP 147/64
[2017-03-31 13:37] VITALS: Ht 165.1 cm; Wt 91.1 kg
[2017-03-31 16:26] VITALS: BP 122/68
--- NOTE | 2017-03-31 19:47 | NUR ---
RESUMED CARE OF PT, UP IN CHAIR RESPIRATIONS EVEN AND UNLABORED ON 2LPM VIA NC. 61 PACED ON TELEMETRY. RIGHT HAND INFUSING D5NS @ 100. PLAN OF CARE DISCUSSED. CALL LIGHT IN REACH. WILL CONTINUE TO MONITOR. SEE NURSE ASSESSMENT.
[2017-03-31 20:00] VITALS: BP 189/63
[2017-04-01] VITALS: BP 141/52
[2017-04-01 04:00] VITALS: BP 188/87
[2017-04-01 05:40] LABS: BASOPHILS 0.2 % (0-2); EOSINOPHILS 4.3 % (0-7); HEMATOCRIT 32.7 % (36.0-48.0); HEMOGLOBIN 10.4 g/dL (12-16); IMMATURE GRANULOCYTES 0.2 % (0-5); LYMPHOCYTES 23.1 % (15-50); MCH 28.8 pg (26.0-34.0); MCHC 31.8 g/dL (31.0-37.0); MCV 90.6 fL (80.0-100.0); MEAN PLATELET VOLUME 10.8 fL (7.4-10.4); MONOCYTES 10.4 % (2-11); NEUTROPHILS 61.8 % (40-80); PLATELET COUNT 193 10x3/uL (130-400); RBC 3.61 10x6/uL (4.00-5.40); RDW 15.6 % (11.5-14.5); WBC 6.3 10x3/uL (4.8-10.8)
[2017-04-01 05:53] LABS: ANION GAP 12.2 mmol/L (8-16); CALCIUM 8.9 mg/dL (8.5-10.1); CARBON DIOXIDE 23.9 mmol/L (21.0-32.0); CREATININE - SERUM 1.7 mg/dL (0.6-1.3); POTASSIUM - SERUM 4.1 mmol/L (3.5-5.1)
[2017-04-01 06:04] LABS: INR 1.2 (0.85-1.17); PROTIME 15.1 SECONDS (11.6-15.0)
--- NOTE | 2017-04-01 07:11 | NUR ---
AM ROUNDS- PT IN BED, WITH EYES CLOSED. BED LOW AND WHEELS LOCKED, BEDSIDE RAILX2, DAUGTHER AT BEDSIDE, CALL LIGHT IN REACH, NAD NOTED, WILL CONTINUE TO MONITOR.
[2017-04-01 08:20] VITALS: BP 198/75
--- NOTE | 2017-04-01 09:31 | NUR ---
PRE- OP MEDS GIVEN AT THIS TIME. PT IN BED, DENIES ANY NEEDS AT THIS TIME. CALL LIGHT IN REACH, NAD NOTED, FAMILY AT BEDSIDE, WILL CONTINUE TO MONITOR.
--- NOTE | 2017-04-01 09:47 | NUR ---
PT TRANSFERED TO SALICYLIC ACID BLENDER VIA BED, NAD NOTED.
--- NOTE | 2017-04-01 10:48 | NUR ---
PT RECEIVED BACK TO ROOM 2118 POST CATH. VITAL SIGNS STABLE, NO BLEEDING OR SIGNS OF HEMATOMA NOTED TO RIGHT GROIN. PT STILL DROWSY, DENIES ANY NEEDS AT THIS TIME. INSTRUCTED PT TO LAY FLAT FOR 2HR. FAMILY AT BEDSIDE, CALL LIGHT IN REACH, NAD NOTED, WILL CONTINUE TO MONITOR.
[2017-04-01 12:35] VITALS: BP 154/66
--- NOTE | 2017-04-01 12:50 | NUR ---
PROVIDED VERBAL AND WRITTEN DISCHARGE TEACHING TO PT AND FAMILY AT BEDSIDE. PT AND FAMILY VERBALIZED UNDERSTANDING REGARDING TEACHING. D/C RT HAND IV, TIP INTACT. HEART MONITOR TAKEN OFF AND TAKEN TO TECHNICAL AID MADY. PT WILL LET ADULT EDUCATOR OR NURSE KNOW WHEN SHE IS READY FOR WHEELCHAIR. NAD NOTED, WILL CONTINUE TO MONITOR.
--- NOTE | 2017-04-01 13:14 | NUR ---
PT LEFT UNIT VIA WHEELCHAIR, ACCOMPANIED BY FAMILY, NAD NOTED.
--- NOTE | 2017-04-02 08:33 | DS ---
PATIENT:MARIEL ROBBINS :[birth year] MEDICAL RECORD: [id number] DISCHARGE SUMMARY ADMISSION DATE: 03/30/17 DISCHARGE DATE: 04/01/17 PROBLEM LIST: 1. Chest pain. 2. Normal cardiac catheterization. 3. History of deep vein thrombosis on chronic Coumadin. 4. Hypertension. 5. Paroxysmal atrial fibrillation in sinus rhythm on diltiazem. HOSPITAL COURSE: The patient presents with chest pain. However, she underwent cardiac catheterization revealing no significant coronary artery disease. She was discharged home with no change in her medications. Continue her Coumadin for her deep vein thrombosis. Follow up with [facility] in three months. GRETA COOPER MD at 0833 CC: [id number] DICTATION DATE: 04/01/17 1200 MANAGER SOCIAL WORK: MARTHA 04/01/17 1538 DIS IN 04/01/17 [place] [id number] [place] [id number]
--- NOTE | 2017-04-02 08:33 | PRO ---
PATIENT:MARIEL ROBBINS MEDICAL RECORD: [id number] : [birth year] LOCATION:D.M2 D.2118 ADMISSION DATE: 03/30/17 PROCEDURE PERFORMED BY: GRETA COOPER MD PROCEDURE DATE: 04/01/17 PROCEDURES: 1. Left heart catheterization. 2. Selective coronary angiography. 3. Left ventriculogram. INDICATION: 1. Chest pain compatible with angina. PROCEDURE IN DETAIL: After informed consent was obtained and after detailed explanation of risks, benefits, as well as alternative therapies, the patient elected to proceed with angiogram. The right femoral area was prepped and draped in a normal sterile fashion. The right femoral artery was cannulated via modified Seldinger technique with placement of 5-[place]izen [place] sheath. All catheters exchanged through this sheath. FINDINGS: Left ventriculogram was performed in standard 30 degree SAHU view, reveals good cardiac wall motion throughout all segments. Overall ejection fraction estimated 50%. SELECTIVE CORONARY ANGIOGRAPHY: 1. Left main, left anterior descending, left circumflex, and right coronary artery are all smooth walled vessels with no angiographic evidence of coronary artery disease. OVERALL IMPRESSION: No angiographic evidence of coronary artery disease. Normal left heart systolic function. Chest pain is noncardiac in etiology. GRETA COOPER MD at 0833 CC: [id number] DICTATION DATE: 04/01/172118 PROJECT ACCOUNTANT: JACKSON 04/01/172117 DIS IN 04/01/17 [place] [id number] [place] [id number]
== END 2017-04-01 13:17 | disposition home or self-care (01) ==
LOC: D.ER 20:07 → OBSVTIME 23:04 → D.M2 23:04
PROVIDERS: Emergency Medicine; Internal Medicine Interventional Cardiology; Nurse Practitioner Acute Care; ADMIT Emergency Medicine
DX: R07.89 Other chest pain (principal); N17.9 Acute kidney failure, unspecified; I12.9 Hypertensive chronic kidney disease with stage 1 through stage 4 chronic kidney disease, or unspecified chronic kidney disease; N18.9 Chronic kidney disease, unspecified; D63.1 Anemia in chronic kidney disease; Z95.0 Presence of cardiac pacemaker; I25.10 Atherosclerotic heart disease of native coronary artery without angina pectoris; I48.0 Paroxysmal atrial fibrillation; Z79.01 Long term (current) use of anticoagulants; Z86.718 Personal history of other venous thrombosis and embolism

== ENCOUNTER 2019-06-03 19:04 | Observation (INO) | payer MEDICARE, OTHER ==
[~2019-06-03] VITALS: Ht 165.1 cm; Wt 88.2 kg
--- NOTE | ~2019-06-03 | HEMODYNAMI ---
PATIENT:MARIEL ROBBINS MEDICAL RECORD: [id number] : 40 [facility] [address] [id number] ADMISSION DATE: 06/03/19 Generatedon:06/04/201915:06 Patient name: MARIEL ROBBINS Patient #: [id number] SSN: [id number] : 1940 Date of study: 06/04/2019 Page: Of Hemodynamic Procedure Report Patient Data Patient Demographics Procedure consent was obtained First Name: MARIEL Gender: Female Last Name: ITZEL : 1940 Middle Initial: S Age: 78 year(s) Patient #: [id number] Race: SSN: [id number] Additional ID: [id number] Contact details [address]: [address] [place] [address] State: [place] City: [place] Zip code: [address] Past Medical History Allergies Allergen Reaction Date Comments Reported Penicillins 04/01/2017 Sulfa drugs 04/01/2017 Codeine 04/01/2017 Other allergy 04/01/2017 METOPROLOL Other allergy 06/04/2019 PCN, SULFA, CODEINE, HYDROCODONE, METOPROLOL Admission Admission Data Admission Date: 06/03/2019 Admission Time: 19:53 Room #: 2122 Lab Results Lab Result Date: 06/04/2019 Lab Result Time: 0:00 Biochemistry Name Units Result Min Max BUN mg/dl 32 --(----)-* 7 18 Creatinine mg/dl 1.9 --(----)-* 0.6 1.3 eGFR ml/min 27 *-(----)-- 90 120 NONAFRICAN CBC Name Units Result Min Max Hemoglobin g/dl 10.8 *-(----)-- 13.5 17.5 Procedure Procedure Types Cath Procedure Diagnostic Procedure LHC LHC w/Coronaries Sedation Charges Moderate Sedation up to 15 minutes Procedure Description Procedure Date Procedure Date: 06/04/2019 Procedure Start Time: 14:56 Procedure End Time: 15:05 Procedure Staff Name Function Manpreet Juarez MD Performing Physician Kelsey Del Rosario RT Monitor Pia Florian RT Scrub Rosa Orr RN Nurse Procedure Data Cath Procedure Fluoroscopy Diagnostic fluoroscopy Total fluoroscopy Time: 1.7 time: 1.7 min min Diagnostic fluoroscopy Total fluoroscopy dose: 238 dose: 238 mGy mGy Contrast Material Contrast Material Type Amount (ml) Isovue 300 40 Entry Location Entry Primary Successful Side Size Upsize Upsize Entry Closure Succes sful Closure Location (Fr) 1 (Fr) 2 (Fr) Remarks Device Remarks Femoral Right 5 Fr Exoseal artery Estimated blood loss: 5 ml Diagnostic catheters Device Type Used For End Catheter Placement MULTIPACK Pigtail 5 Fr LV Angiography catheter MULTIPACK JL 4.0 5Fr Left Coronary catheter Angiography MULTIPACK 3DRC 5Fr Right Coronary catheter Angiography Procedure Complications No complications Procedure Medications Medication Administration Route Dosage 0.9% NaCl I.V. 100 ml/hr Oxygen etCO2 Nasal cannula 2 l/min Lidocaine 2% added to field 20 Heparin Flush Bag added to field 2 bags (1000units/500ml NS) Versed I.V. 2 mg Fentanyl I.V. 50 mcg Fentanyl I.V. 25 mcg Hemodynamics Rest HGB: 10.8 (g/dl) Heart Rate: 75 (bpm) Pressure Samples Time Site Value (mmHg) Purpose Heart Use Rate(bpm) 14:58 LV 60/-4,1 Snapshot 71 Snapshots Pre Cath Intra NCS Post Cath Vital Signs Time Heart Resp SPO2 etCO2 NIBP (mmHg) Rhythm Pain Sedation Rate (ipm) (%) (mmHg) Status Level (bpm) 14:45:08 77 16 97 31.5 Measuring NSR 0 (11) 10(A) , No pain 14:45:23 74 15 98 31.5 173/77(131) NSR 0 (11) 10(A) , No pain 14:50:22 66 18 100 27 Measuring NSR 0 (11) 10(A) , No pain 14:50:46 68 18 98 28.5 160/69(114) NSR 0 (11) 10(A) , No pain 14:55:45 66 18 100 28.5 Measuring NSR 0 (11) 10(A) , No pain 14:56:08 67 17 100 29.2 165/73(128) NSR 0 (11) 10(A) , No pain 15:01:07 76 18 98 30.7 Measuring NSR 0 (11) 10(A) , No pain 15:01:29 77 19 97 30 161/91(132) NSR 0 (11) 10(A) , No pain Medications Time Medication Route Dose Verified Delivered Reason Notes Eff ectiveness by by 14:44:58 0.9% NaCl I.V. 100 Manpreet Rosa used for ml/hr Ann Orr item repair manager 14:45:05 Oxygen etCO2 2 Manpreet Rosa used for Nasal l/min Ann Orr procedure cannula RN 14:45:09 Lidocaine 2% added 20ml Manpreet Manpreet for local to vial Ann Juarez MD anesthetic field 14:45:15 Heparin Flush added 2 Manpreet Manpreet used for Bag to bags Ann Juarez MD procedure (1000units/500ml field NS) 14:48:32 Versed I.V. 2 mg Manpreet Rosa for Ann Orr sedation RN 14:48:42 Fentanyl I.V. 50 Manpreet Rosa for mcg Ann Orr sedation RN 14:57:50 Fentanyl I.V. 25 Manpreet Rosa for mcg Ann Orr sedation cogeneration operator Log Time Note 13:29:17 Diagnostic Cath Status : Elective 13:30:24 Time tracking: Regular hours (M-F 7:00 - 5:00) 13:30:29 Plan of Care:Hemodynamics will remain stable., Cardiac rhythm will remain stable., Comfort level will be maintained., Respiratory function will remain adequate., Patient/ family verbilizes understanding of procedure., Procedure tolerated without complication., Recovers from procedure without complications.. 13:32:01 Informed consent obtained and on chart 13:33:17 Lab Result : BUN 32 mg/dl 13:33:17 Lab Result : Hemoglobin 10.8 g/dl 13:33:17 Lab Result : Creatinine 1.9 mg/dl 13:33:17 Lab Result : eGFR NONAFRICAN 27 ml/min 13:50:23 Rosa Orr RN sent for patient. Start room use. 14:22:35 Patient allergic to Other allergyPCN, SULFA, CODEINE, HYDROCODONE, METOPROLOL 14:43:19 Vital chart was started 14:44:58 0.9% NaCl 100 ml/hr I.V. was administered by Rosa Orr RN; used for procedure; 14:45:05 Oxygen 2 l/min etCO2 Nasal cannula was administered by Rosa Orr RN; used for procedure; 14:45:09 Lidocaine 2% 20ml vial added to field was administered by Manpreet Juarez MD; for local anesthetic; 14:45:15 Heparin Flush Bag (1000units/500ml NS) 2 bags added to field was administered by Manpreet Juarez MD; used for procedure; 14:45:32 ACC Patient presents with Stable Angina CCS Anginal Class 2--Slight limitation of ordinary activity. 14:45:38 Procedure Status Urgent Heart Cath (IP). 14:45:45 Patient received from Med II to CCL 2 Alert and oriented. Tansferred to table in Supine position. 14:45:46 Warm blankets applied, and virginia hugger turned on for patient comfort. 14:45:46 Correct patient and procedure confirmed by team. 14:45:47 Baseline sample Acquired. 14:45:47 ECG and BP/O2 sat monitors applied to patient. 14:45:51 Rhythm: sinus rhythm 14:45:53 Full Disclosure recording started 14:45:57 H&P Date Dictated: 06/04/2019 New H&P dictated by physician.. 14:45:59 Pre-procedure instructions explained to patient. 14:45:59 Pre-op teaching completed and patient verbalized understanding. 14:46:02 Family in patients room. 14:46:20 Patient NPO since Midnight. 14:46:23 Is the patient allergic to Iodine/contrast media? No. 14:46:27 Was the patient premedicated? Yes 14:46:36 Is patient on blood thinner?Yes 14:46:52 Patient diabetic? Yes. 14:47:19 If diabetic: On Metformin? No 14:47:22 Previous problem with sedation/anesthesia? No ? 14:47:23 Snore? Yes 14:47:24 Sleep apnea? No 14:47:25 Deviated septum? No 14:47:26 Opens mouth fully? Yes 14:47:27 Sticks out tongue? Yes 14:47:29 Airway obstruction? No ? 14:47:31 Dentures? No ? 14:47:35 Pre procedure: right dorsailis pedis pulse 2+ Normal; easily identifiable; not easily obliterated 14:47:37 Pre procedure: left dorsailis pedis pulse 2+ Normal; easily identifiable; not easily obliterated 14:47:39 Patient pain scale 0/10 ?. 14:47:45 IV patent on arrival in right antecubital with 0.9% NaCl at [facility]. 14:47:48 Lab results completed and on chart. 14:47:54 Right groin area was prepped with chlora-prep and draped in sterile fashion 14:47:55 Alarms reviewed by R. N. 14:47:55 Sharps counted by scrub and verified by R.N. 14:47:57 Physician arrived 14:47:58 --------ALL STOP TIME OUT------ 14:47:58 Final Timeout: patient, procedure, and site verified with staff and physician. All members of the team are in agreement. 14:48:00 Right groin site verified by team. 14:48:04 Fire Safety Assessment: A--An alcohol-based skin anteseptic being used preoperatively., C--Open oxygen or nitrous oxide is being used., D--An ESU, laser, or fiber-optic light is being used. 14:48:08 Physical assessment completed. ASA score P 2 - A patient with mild systemic disease as per Manpreet Juarez MD. 14:48:15 4) 15-29 Severley reduced kidney function. 14:48:23 Maximum allowable contrast dose (3.7 X eGFR X 0.75)74 ml. 14:48:30 Sedation plan: IV Moderate Sedation Medication:Versed, Fentanyl 14:48:32 Versed 2 mg I.V. was administered by Rosa Orr RN; for sedation; 14:48:34 Use device set Femoral Dx 14:48:35 ACIST Syringe (11788) opened to sterile field. 14:48:35 Bag Decanter () opened to sterile field. 14:48:36 Medline Cath Pack ([id number]) opened to sterile field. 14:48:37 ACIST Hand Control (42559) opened to sterile field. 14:48:37 ACIST Manifold (62150) opened to sterile field. 14:48:38 DIAGNOSTIC Multipack 5Fr catheter set (CT3915) opened to sterile field. 14:48:38 Tegaderm 4 x 4 (1626W) opened to sterile field. 14:48:42 Fentanyl 50 mcg I.V. was administered by Rosa Orr RN; for sedation; 14:48:42 SHEATH 5FR Tipton (VIP966) opened to sterile field. 14:48:42 EMERALD Guide Wire (359-254) opened to sterile field. 14:51:05 Zero performed for pressure channel P1 14:55:50 Procedure started. 14:56:00 Local anesthetic to right femoral artery with Lidocaine 2% by Manpreet Juarez MD.INITIAL ACCESS ONLY 14:56:23 A 5 Fr sheath was inserted into the Right Femoral artery 14:56:58 A MULTIPACK Pigtail 5 Fr catheter was advanced over the wire and used for LV Angiography. 14:57:50 Fentanyl 25 mcg I.V. was administered by Rosa Orr RN; for sedation; 14:58:46 LV hemodynamics recorded. 14:58:51 LV gram done using SAHU 14:59:03 EF : 60 % 14:59:06 Catheter removed. 14:59:16 A MULTIPACK JL 4.0 5Fr catheter was advanced over the wire and used for Left Coronary Angiography. 14:59:40 LCA angiography performed. 15:00:07 Catheter removed. 15:00:18 A MULTIPACK 3DRC 5Fr catheter was advanced over the wire and used for Right Coronary Angiography. 15:00:41 RCA angiography performed. 15:00:50 Catheter removed. 15:00:53 EXOSEAL 5Fr (EX500) opened to sterile field. 15:01:15 Sheath removed intact; hemostasis achieved with Exoseal to the Right Femoral artery. 15:01:25 Procedure ended.(Physican Out) 15:01:56 Fluoroscopy time 01.70 minutes. 15:02:17 Flurop Dose total: 238 15:02:17 Fluoroscopy dose: 238 mGy 15:02:29 Dose Area Product 45681 mGy/cm. 15:02:37 Contrast amount:Isovue 300 40ml. 15:02:41 Maximum allowable dose exceeded? No. 15:02:42 Sharps counted by scrub and verified by R.N. 15:02:49 Insertion/operative site no bleeding no hematoma. 15:02:56 Post-op/insertion site Right Femoral artery dressed using a 4 x 4 and Tegaderm. 15:03:19 Post Procedure Pulses reassessed and unchanged 15:03:27 Estimated blood loss: 5 ml 15:03:37 Post procedure rhythm: unchanged. 15:03:40 Post procedure instruction explained to patient.Patient verbalizes understanding. 15:03:41 Patient needs reinforcement of post procedure teaching. 15:03:59 Procedure type changed to Cath procedure, Diagnostic procedure, LHC, LHC w/Coronaries, Sedation Charges, Moderate Sedation up to 15 minutes 15:04:03 Procedure and supply charges have been captured, reviewed, submitted and are correct. 15:04:27 Procedure Complication : No complications 15:04:37 Vital chart was stopped 15:04:40 See physician's report for complete and final results. 15:04:51 Report given to Pre/Post Procedure Room. 15:04:59 Patient transfered to Pre/Post Procedure Room with Bed. 15:05:06 Procedure ended. 15:05:06 Full Disclosure recording stopped 15:05:15 End room use (Document Last) Device Usage Item Name Manufacture Quantity Catalog Hospital Part Current Minimal L ot# / Number Charge Number Stock Stock Serial# Code ACIST Acist 1 69104 506776 655661 456017 20 Syringe Medical (58610) Systems Inc Bag Microtek 1 2001S 772755 54247 819311 5 Decanter Medical Inc. (2001S) Medline Medline 1 [id number] 037168 91137 357092 5 Cath Pack ([id number]) ACIST Hand Acist 1 07435 081067 559926 677985 5 Control Medical (15982) Systems Inc ACIST Acist 1 93822 435098 550702 834078 5 Manifold Medical (44767) Systems Inc DIAGNOSTIC Cardinal 1 [id number] 926206 26714 235006 30 Multipack Health 5Fr catheter set (UQ6746) Tegaderm 4 3M 1 1626W 421002 002894 451308 5 x 4 (1626W) SHEATH 5FR Terumo 1 VOD063 841416 501951 734836 5 Tipton (PZX198) EMERALD Cardinal 1 502-455 217167 919633 306618 5 Guide Wire [facility] (977-024) MULTIPACK Cardinal 1 321399 5 Pigtail 5 Health Fr catheter MULTIPACK Cardinal 1 078042 5 JL 4.0 5Fr Health catheter MULTIPACK Cardinal 1 206024 5 3DRC 5Fr Health catheter EXOSEAL 5Fr Cardinal 1 EX500 102400 878316 558988 10 (EX500) Health Signature Audit Curtiss Stage Time Signature Unsigned Intra-Procedure 06/04/2019 Kelsey Del Rosario 3:06:50 PM RT(R) Signatures Performing Physician : Signature : Manpreet Juarez MD Date : Time : Monitor : Kelsey Del Rosario RT Signature : Date : Time : Nurse : Rosa Orr RN Signature : Date : Time : [facility] [address] [place] [address]
[2019-06-03 19:51] LABS: BASOPHILS 0.3 % (0-2); EOSINOPHILS 5.5 % (0-7); HEMOGLOBIN 10.8 g/dL (12-16); IMMATURE GRANULOCYTES 0.4 % (0-5); LYMPHOCYTES 34.8 % (15-50); MCH 29.6 pg (26.0-34.0); MCHC 33.8 g/dL (31.0-37.0); MCV 87.7 fL (80.0-100.0); MEAN PLATELET VOLUME 9.6 fL (7.4-10.4); MONOCYTES 10.9 % (2-11); NEUTROPHILS 48.1 % (40-80); PLATELET COUNT 227 10x3/uL (130-400); RBC 3.65 10x6/uL (4.00-5.40); RDW 14.5 % (11.5-14.5); WBC 7.1 10x3/uL (4.8-10.8)
[2019-06-03 19:58] LABS: APTT 54.6 SECONDS (22.8-39.4); INR 2.67 (0.85-1.17); PROTIME 27.7 SECONDS (11.6-15.0)
[2019-06-03 20:04] LABS: ALBUMIN 3.8 g/dL (3.4-5.0); ALKALINE PHOSPHATASE 110 U/L (46-116); ALT (SGPT) 23 U/L (10-68); CALC OSMOLALITY 283 mosm/kg (275-300); CALCIUM 9.4 mg/dL (8.5-10.1); CARBON DIOXIDE 21.6 mmol/L (21.0-32.0); CHLORIDE - SERUM 105 mmol/L (98-107); CREATININE - SERUM 1.9 mg/dL (0.6-1.3); GLUCOSE 87 mg/dL (74-106); POTASSIUM - SERUM 4.6 mmol/L (3.5-5.1); PROTEIN - SERUM 7.6 g/dL (6.4-8.2); SODIUM 139 mmol/L (136-145); UREA NITROGEN 32 mg/dL (7-18); eGFR NON AFRICAN AMERICAN 27 mL/min (90-120)
[2019-06-03 20:16] LABS: PRO BNP 203 pg/mL (0-450)
[2019-06-03 20:20] LABS: TROPONIN-I < 0.017 ng/mL (0.000-0.060)
[2019-06-03] MEDS ORDERED: PROZAC20 MG PO (21:03)
[2019-06-03] MEDS ORDERED: ZETIA10 MG PO (21:04)
[2019-06-03] MEDS ORDERED: NORVASC5 MG PO (21:04)
[2019-06-03] MEDS ORDERED: GLUCOTROL ER2.5 MG PO (21:05)
[2019-06-03 22:20] VITALS: BP 154/73; BMI 32.3
[2019-06-03 22:45] VITALS: Ht 165.1 cm; Wt 88.2 kg
--- NOTE | 2019-06-03 22:59 | NUR ---
PT ARRIVED AT 2023 HRS FORM ER WITH DX CP. NO ACUTE DISTRESS NOTED. SR PER CM HR 76. ALERT AND ORIENTED TO PERSON,PLACE AND TIME. HARRISON. TYLENOL 650 MG PO GIVEN FOR C/O BACK PAIN. ADMISSION ASSESSMENT, HISTORY AND HOME MED LIST COMPLETED BY 2229 HRS. PT STATED BACK PAIN LESS INTENSE AT THAT TIME. LUNGS DIMINISHED IN BASES BILAT. IV TO RAC SL. DR COOPER HERE TO EVAL AT 2245 HRS. PT TO CTA AT 2300 HRS. SON AT BEDSIDE.
--- NOTE | 2019-06-03 23:06 | NUR ---
DR COOPER HERE. STATES TO GIVE 3 UNITS FFP'S IF CTA NEG. IF CTA POSITIVE NO FFP'S AND FOR AM [facility].
--- NOTE | 2019-06-04 00:07 | NUR ---
PT AWAKE, NO DISTRESS NOTED. SON AT BEDSIDE.
--- NOTE | 2019-06-04 02:17 | NUR ---
PT RESTING WITH EYES CLOSED. RESP EVEN AND REGULAR. SR UP X2, CALL LIGHT WITHIN REACH.
--- NOTE | 2019-06-04 02:58 | NUR ---
1ST UNIT OF FFP'S STARTED.
[2019-06-04 04:00] VITALS: BP 143/71
--- NOTE | 2019-06-04 05:40 | NUR ---
3RD UNIT FP'S STARTED AT 0530 HRS. NO DISTRESS NOTED.
[2019-06-04 07:01] LABS: INR 1.58 (0.85-1.17); PROTIME 18.2 SECONDS (11.6-15.0)
--- NOTE | 2019-06-04 07:58 | NUR ---
BEDSIDE SHIFT REPORT DONE WITH NIGHT NURSE. PT IS UP TO BR AND WASHING HANDS AND FACE AT SINK. PT STATES SHE FEELS MUCH BETTER. INFORMED PT SHE IS STILL NPO AND 5TH ON CATH SCHEDULE. MONITOR SHOWS SR @ 62.
[2019-06-04 08:47] VITALS: BP 154/65
--- NOTE | 2019-06-04 10:38 | NUR ---
REFUSED SCD'S PER MARIAELENA/RN
--- NOTE | 2019-06-04 10:39 | NUR ---
PATIENT RESTING COMFORTABLY WITH SON AT BS. PATIENT DENIES ANY NEEDS OR PAIN. PATIENT CONTINUES TO BE NPO AWAITNG HEART CATH. ASSESSMENT COMPLETED.
[2019-06-04 12:05] VITALS: BP 185/71
--- NOTE | 2019-06-04 13:30 | NUR ---
PATIENT IS STABLE AND VSS. PATIENT TO ANDROID IOS DEVELOPER VIA HOSPITAL BED AND ANDROID IOS DEVELOPER STAFF.
--- NOTE | 2019-06-04 15:09 | HP ---
PATIENT: MARIEL YOUNG MEDICAL RECORD: [id number] ACCOUNT: [id number] LOCATION:[address] : 40 ADMISSION DATE: 06/03/19 PCP: No PCP HISTORY AND PHYSICAL EXAMINATION ADMITTING DIAGNOSES: 1. Chest pain compatible with unstable angina. 2. Coronary artery disease. 3. Paroxysmal atrial fibrillation. 4. History of deep venous thrombosis, pulmonary embolus. 5. Inferior vena cava filter. 6. Hypertension. 7. Diabetes. 8. Coumadin anticoagulation. 9. Hyperlipidemia. 10. Family history of coronary artery disease. HISTORY OF PRESENT ILLNESS: Ms. Young presented to our office and to the Emergency Room multiple times over the past 3 weeks with increasing episodes of chest discomfort, chest pain. She for the past 3 weeks has had chest discomfort, sometimes around the right scapular area, now more in the anterior chest with a pressure-like sensation, very typical for angina, it has been increasing. She is relatively debilitated by the chest discomfort. It is worsened with any exertion. She has a history of deep vein thrombosis and pulmonary embolus. The pain she is having now is not like that and it is a heavy pressure sensation in the anterior chest. PHYSICAL EXAMINATION: GENERAL APPEARANCE: Well nourished, well developed, appears stated age. Level of distress, comfortable. PSYCHIATRIC: Mental status, alert, normal affect. Orientation, oriented to time, place and person. EYES: Lids and conjunctiva, noninjected. No discharge, no pallor. ENT: Lips, teeth, gums, normal dentition. Oropharynx, no cyanosis, no pallor. NECK: Carotid arteries, bilateral normal upstroke, no bruits, no thrills. JUGULAR VEINS: No jugular venous pressure or distention. CERVICAL LYMPH NODES: Nontender, nonenlarged. THYROID: Not enlarged. Nontender. No nodules. LUNGS: Respiratory effort, unlabored. CHEST: Normal curvature. No thoracic deformity. No chest wall tenderness. Percussion, resonant. Auscultation, clear. No wheezes, no rales, no rhonchi. CARDIOVASCULAR: Precordial exam, nondisplaced. No heaves or pericardial thrills. Rate and rhythm, regular. Heart sounds, normal S1, normal S2. No S3, no gallop, no rub. Systolic murmur, not heard. Diastolic murmur, not heard. EXTREMITIES: No cyanosis, no edema. Peripheral pulses, full and equal in all extremities, except as noted. No bruits appreciated. ABDOMEN: Soft, nondistended. Normal aorta. No bruit. Nontender. No masses. Liver, nontender, no hepatomegaly. Spleen, nontender, no splenomegaly. MUSCULOSKELETAL: No joint tenderness. No joint swelling. No erythema. NEUROLOGICAL: Normal gait, normal strength, normal tone. SKIN: Warm and dry. OVERAL IMPRESSION: Increasing episodes of chest pain in a patient with multiple risk factors including diabetes, hypertension, hyperlipidemia, family history of coronary artery disease. HISTORY AND PHYSICAL [id number] MARIEL YOUNG We will proceed with coronary angiography as well as get a CT angio to evaluate for recurrent pulmonary embolus. TRANSINT:[id number] Voice Confirmation ID: [id number] DOCUMENT ID: [id number] GRETA COOPER MD at 1509 CC: [id number] DICTATION DATE: 06/03/192242 SODA FOUNTAIN MANAGER: 06/04/19 0032 ADM IN [place] [id number] [place] [id number]
--- NOTE | 2019-06-04 15:16 | NUR ---
PT ARRIVED BY STRETCHER. PLACED ON MONITORS. ASSESSMENT COMPLETED. CALL LIGHT WITHIN REACH.
--- NOTE | 2019-06-04 15:30 | NUR ---
RIGHT GROIN DRESSING C/D/I. NO S/S OF HEMATOMA NOTED. CALL LIGHT WITHIN REACH. CALL LIGHT WITHIN REACH.
--- NOTE | 2019-06-04 16:00 | NUR ---
PT RESTING COMFORTABLY. FAMILY AT BEDSIDE. HEAD OF BED INC SLIGHTLY. RIGHT GROIN DRESSING C/D/I. NO S/S OF HEMATOMA NOTED. CALL LIGHT WITHIN REACH. VSS. PT TOLERATING SIPS OF WATER.
--- NOTE | 2019-06-04 16:20 | NUR ---
DR. COOPER AT BEDSIDE. SPOKE WITH PT AND PT'S FAMILY. THEY VOICED UNDERSTANDING. RIGHT GROIN DRESSING C/D/I. NO S/S OF HEMATOMA NOTED AT THIS TIME. VSS.
--- NOTE | 2019-06-04 16:46 | NUR ---
PT SET UP WITH SANDWICH TRAY. RIGHT GROIN DRESSING C/D/I. NO S/S OF HEMATOMA NOTED. CALL LIGHT WITHIN REACH. FAMILY AT BEDSIDE. VSS.
--- NOTE | 2019-06-04 17:00 | NUR ---
PIV D/C'D WITH CATH TIP INTACT. PT TOLERATED WELL. RIGHT GROIN DRESSING C/D/I. NO S/S OF HEMATOMA NOTED. PT UP TO GET DRESSED. FAMILY AT BEDSIDE TO ASSIST. DISCUSSED DISCHAGE INSTRUCTIONS WITH PT AND PT'S FAMILY. THEY VOICED UNDERSTANDING.
--- NOTE | 2019-06-04 17:15 | NUR ---
PT AMBULATED TO RESTROOM. VOIDED WITHOUT DIFFICULTY. TAKEN OUT TO VEHICLE BY WHEELCHAIR. NO S/S OF DISTRESS NOTED. ALL BELONGINGS AND PAPERWORK IN HAND.
--- NOTE | 2019-06-06 14:32 | OP ---
PATIENT NAME: MARIEL ROBBINS MEDICAL RECORD: [id number] :40 LOCATION:[facility] ADMISSION DATE:06/03/19 SURGEON: GRETA COOPER MD DATE OF OPERATION: 06/04/2019 PROCEDURES: 1. Left heart catheterization. 2. Selective coronary angiography. 3. Left ventriculogram. 4. Pacemaker interrogation. INDICATION: Angina and coronary artery disease. PROCEDURE IN DETAIL: After informed consent was obtained and after detailed description of risks, benefits as well as alternative therapies, the patient elected to proceed with angiogram and heart catheterization. The right radial area was prepped and draped in normal sterile fashion. Right radial artery was cannulated via modified Seldinger technique with placement of 5-Sri [place]ankan sheath. All catheters exchanged through this sheath. FINDINGS: The left ventriculogram was performed in standard 30-degree SAHU view, reveals good cardiac wall motion throughout all segments. Overall ejection fraction estimated 60%. SELECTIVE CORONARY ANGIOGRAPHY: Left main, left anterior descending, left circumflex, right coronary artery have only minimal irregularities, no stenosis greater than 20%. Pacemaker was interrogated. No parameter changes were needed. Excellent battery life, no dysrhythmias were present. OVERALL IMPRESSION: Minimal coronary artery disease is present. No flow-limiting stenosis. Preserved left ventricular function. No dysrhythmias present. Chest pain is noncardiac in etiology. TRANSINT:[id number] Voice Confirmation ID: [id number] DOCUMENT ID: [id number] GRETA COOPER MD at 1432 CC: [id number] DICTATION DATE: 06/04/19 1508 FILTERING MACHINE TENDER HELPER: 06/04/19 1839 DIS IN 06/04/19 [facility] [address] [place] [address]
== END 2019-06-04 17:15 | disposition home or self-care (01) ==
LOC: D.ER 19:04 → OBSVTIME 19:53 → D.M2 19:53 → D.SDCHOLD 06-04 12:38 → D.CLR 06-04 15:44
PROVIDERS: Family Medicine; ADMIT Internal Medicine Interventional Cardiology; ATTEND Internal Medicine Interventional Cardiology
DX: I25.110 Atherosclerotic heart disease of native coronary artery with unstable angina pectoris (principal); I48.0 Paroxysmal atrial fibrillation; I10 Essential (primary) hypertension; E11.9 Type 2 diabetes mellitus without complications; E78.5 Hyperlipidemia, unspecified; Z86.711 Personal history of pulmonary embolism; Z79.01 Long term (current) use of anticoagulants; Z82.49 Family history of ischemic heart disease and other diseases of the circulatory system

== ENCOUNTER → 2019-06-12 13:45 | Outpatient (CLI) | payer MEDICARE, OTHER ==
[2019-06-03 22:45] VITALS: BMI 32.3
[~2019-06-12 13:45] MED LIST changes: +GLUCOTROL ER2.5 MG PO; +NORVASC5 MG PO; +PROZAC20 MG PO; +ZETIA10 MG PO
--- NOTE | 2019-06-19 13:38 | EC ---
PATIENT:MARIEL ROBBINS DATE OF SERVICE: 06/12/19 SEX: F MEDICAL RECORD: [id number] DATE OF : 40 [facility] AGE [facility] PAT[facility]: 78 ADMISSION DATE: 06/12/19 REFERRING PHYSICIAN: INTERPRETING PHYSICIAN: GRETA JUAREZ MD ECHOCARDIOGRAM REPORT ECHO CHARGES 4 ECHO COMPLETE Date: 06/12/19 CLINICAL DIAGNOSIS: ANGINA/RUIZ/SOB H/O A-FIB/HTN/PACEMAKER PLACEMENT ECHOCARDIOGRAPHIC MEASUREMENTS (adult normal given) AC root (d.<3.7cm) 3.2 cm LV Septum d (<1.2 cm> 1.4 cm Valve Excursion 0.9 cm LV Septum (systole) 1.8 cm Left Atria (s.<4.0cm> 3.8 cm LVPW d(<1.2cm) 1.4 cm RV (d.<2.3cm) 3.0 cm LVPW (sytole) 2.2 cm LV diastole(<5.6CM) 5.2 cm MV E-F(>70mm/sec) cm LV systole 2.6 cm LVOT Diameter 1.9 cm MV exc.(>10mm) cm Est.ejection fraction (50-75%) % DOPPLER: LVIT cm/sec A 101 cm/sec E 71.0 cm/sec LA cm/sec RVSP 35.0 mmHg LVOT 64.0 cm/sec AOP1/2T m/s Asc. Ao 183 cm/sec RVOT 76.0 cm/sec RA cm/sec PA 95.0 cm/sec AV Gradient Peak 13.3 mmHg AV Mean 7.7 mmHg AV Area 0.9 cm MV Gradient Peak 5.0 mmHg MV Mean 1.8 mmHg MV Area cm COMMENTS: OP - HC Branch Employment Coordinator: 1 MILLIE DELGADODSOE Change Over: 1 Dr. Juarez TAPE# PACS Pericardial Effusion N DATE OF SERVICE: FINDINGS: 1. Left ventricular chamber size is within normal limits. Left ventricular systolic function is lower limits of normal at 45-50%. 2. Left atrium is within normal limits at 3.8 cm. Right atrium and right ventricular chamber sizes are ehlc-wi-sxqeisaxsc dilated. 3. Valvular structures: Aortic valve has mild calcific aortic stenosis, valve area calculates to 0.9 cm squared with a gradient of 13 mm across the valve. ECHOCARDIOGRAM REPORT [id number] MARIEL ROBBINS The remaining valvular structures have normal structure and motion. 4. Doppler interrogation reveals moderate tricuspid regurgitation, no other valvular insufficiency or stenosis. Pulmonary systolic pressure is estimated at 35 mmHg. 5. No evidence of pericardial effusion or left ventricular thrombus. TRANSINT:[id number] Voice Confirmation ID: [id number] DOCUMENT ID: [id number] GRETA JUAREZ MD at 1338 CC: [id number] DICTATION DATE: 06/12/191737 RISK CONTROL ANALYST: 06/12/199 DEP CLI 06/12/19 [place] [id number] [place] [address]
== END | disposition home or self-care (01) ==
LOC: D.HCCECHO 13:45 → D.HCCARDIO 14:30 → D.HCCECHO 14:30
PROVIDERS: ATTEND Internal Medicine Interventional Cardiology
DX: R06.09 Other forms of dyspnea (principal)

== ENCOUNTER → 2020-05-09 13:12 | Outpatient (CLI) | payer MEDICARE, OTHER ==
[2019-06-03 22:45] VITALS: BMI 32.3
== END | disposition home or self-care (01) ==
LOC: D.HCCECHO 13:12
PROVIDERS: ATTEND Internal Medicine Cardiovascular Disease
DX: I25.10 Atherosclerotic heart disease of native coronary artery without angina pectoris (principal)